=== PATIENT | female | born 1985 | race Caucasian/White ===

== ENCOUNTER 2019-01-20 05:25 | Day surgery (SDC) ==
[2019-01-20] MEDS ORDERED: NS 1,000 ML IV ONE (05:38)
[2019-01-20] MEDS ORDERED: BENTYL IM ONE (05:38)
[2019-01-20] MEDS ORDERED: REGLAN IV ONE (05:38)
[2019-01-20] MEDS ORDERED: BENADRYL IV ONE (05:38)
[2019-01-20] MEDS ORDERED: MORPHINE IV ONE (05:38)
--- NOTE | 2019-01-20 05:44 | PROVIDER DOCUMENTATION ---
HPI-Abdominal Pain/GI Problem - General Chief Complaint: Flank Pain Stated Complaint: ABD PAIN Time Seen by Provider: 01/20/19 05:35 Source: patient, family Allergies/Adverse Reactions: Patient Allergies Allergy/AdvReac Type Severity Reaction Status Date / Time levofloxacin [From Levaquin] Allergy Mild HIVES Verified 08/26/15 15:41 tramadol Allergy Mild HIVES Verified 08/26/15 15:41 acetaminophen Allergy HIVES Verified 08/26/15 15:41 [From Tylenol-Codeine #3] codeine phosphate * Allergy HIVES Verified 08/26/15 15:41 [From Tylenol-Codeine #3] Home Medications: Home Medication List Medication Instructions Recorded Confirmed Last Taken Type Amoxicillin 875 mg PO BID #20 tablet 02/27/18 Unknown Rx Prednisone 20 mg PO DAILY #6 tablet 02/27/18 Unknown Rx - History of Present Illness-ABD Nature of Presenting Problems: C/O acute onset of right sided flank and back pain, difficulty urinating, nauseated, sweating. Has had chronic back pain in the past, states this is much worse. Never had this type of pain before. states "she's been hurting all night with this pain." Abdominal Pain Onset Location: reports: RLQ, flank Pain Radiation: reports: back Quality of Pain: reports: aching, stabbing Severity in ED: reports: severe Onset/Duration: reports: abrupt, last night Timing: reports: still present, constant, changing over time, getting worse Activities at Onset: reports: light activity Exposure to sick contacts?: No Modifying Factors: improves with: nothing. worse with: movement Associated Symptoms: reports: back/neck pain, diaphoresis, genitourinary problems, loss of appetite, nausea. denies: vomiting Last BM: last night Dark Stools Present?: reports: none noticed Rectal Bleeding: reports: none Rectal Pain: reports: none Emesis Description: reports: none Bruising or Bleeding Gums?: No Similar Symptoms Previously?: No Recently seen or treated by another doctor?: No Review of Systems - Adult - REVIEW OF SYSTEMS - ADULT Constitutional: reports: no symptoms reported Eyes: reports: no symptoms reported Ears, Nose, Mouth & Throat: reports: no symptoms reported Cardiovascular: reports: no symptoms reported Respiratory: reports: no symptoms reported Gastrointestinal: reports: no symptoms reported Genitourinary: reports: no symptoms reported Musculoskeletal: reports: no symptoms reported Integumentary: reports: no symptoms reported Neurological: reports: no symptoms reported Psychiatric: reports: no symptoms reported Endocrine: reports: no symptoms reported Hematologic/Lymphatic: reports: no symptoms reported Allergic/Immunologic: reports: no symptoms reported All Other Systems: Reviewed and Negative Past History - Adult - PAST MEDICAL HISTORY-ADULT Review of Records: reports: Old Records Reviewed (Multiple ER visits in past, suspect allergies.), Nursing Assessment Review, Medications Reviewed, Social history reviewed & non-contributory. Major Childhood Illnesses: reports: denies history Cardiovascular: reports: denies history Respiratory: reports: denies history Gastrointestinal: reports: denies history Obstetrical/Gynecological: reports: denies history Genitourinary: reports: denies history Musculoskeletal: reports: chronic pain, neck/back injury Neurological: reports: denies history Endocrine/Immune: reports: denies history Other Conditions: reports: denies history - PRIOR SURGERIES/PROCEDURES Surgical/Procedure History: reports: hysterectomy, - PRIOR HOSPITALIZATIONS Prior Hospitalizations: reports: none - IMMUNIZATION STATUS Childhood Immunizations: See Nurse Assessment Flu Vaccine: See Nurse Assessment - FAMILY HISTORY Family History: reviewed, not pertinent - SOCIAL HISTORY Smoking: cigarettes, greater than 1 pack/day Provider spent 3-5 mins advising pt. on dangers of tobacco.: Discussed manners to quit use, and f/u contacts for add'l counseling. Substance Use: none/never Alcohol Use Frequency: occasionally Living Situation: family Physical Exam-General - PHYSICAL EXAM-ADULT Initial Vital Signs Reviewed: Yes (Tachycardic, otherwise stable vitals) - CONSTITUTIONAL General Appearance: alert, moderate distress (crying in pain, laying on back, legs drawn up to torso), thin - EYES Eyes: PERRL/EOMI, pink conjunctivae - HEAD, EARS, NOSE, MOUTH & THROAT HENMT: normocephalic/atraumatic, normal ENT inspection. negative: moist mucous membranes - NECK Neck: non-tender, full range of motion, supple, normal inspection - RESPIRATORY Respiratory: chest non-tender, lungs clear, normal breath sounds, no pleuratic chest pain, no respiratory distress, no accessory muscle use - CARDIOVASCULAR Cardiovascular: normal peripheral pulses, regular rate, rhythm, no edema, no gallop, no JVD, no murmur, tachycardia - GASTROINTESTINAL (ABDOMEN) Abdominal Exam: normal bowel sounds, soft, no organomegaly, no pulsatile mass, guarding, tenderness (right flank) - LYMPHATIC Lymphatic: no adenopathy - MUSCULOSKELETAL Back Exam: normal inspection, no vertebral tenderness, CVA tenderness (on right) Extremity: normal range of motion, non-tender, normal gait, normal inspection, no pedal edema, normal capillary refill - SKIN Integumentary: normal color, normal turgor, diaphoresis (clammy) - NEUROLOGIC Neurologic: fern picker II-XII nml as tested, grossly normal, no motor/sensory deficits - PSYCHIATRIC Psych/Mental Status: normal mood/affect, normal thought content, normal thought process, oriented x 3, tearful Progress - PLAN OF CARE/RESULTS Progress/Plan/Lab Results: Vital Signs - 8 hr 01/20/19 05:28 Temperature 98 F Pulse Rate 112 H Respiratory Rate 18 O2 Sat by Pulse Oximetry 99 Orders Category Date Time Status ED: Urine Bedside ORDERED Care 01/20/19 05:[address] RENAL STONE SEARCH [CT] Stat Exams 01/20/19 05:37 Ordered CBC WITH ELECTRONIC DIFF [HEME] Stat Lab 01/20/19 05:37 Uncollected COMPREHENSIVE METABOLIC PANEL [CHEM] Stat Lab 01/20/19 05:[address] W/POSS RFLX CULT [URINALYSIS] Stat Lab 01/20/19 05:37 Uncollected 0.9% Sodium Chloride Inj [Ns] 1,000 ml Med 01/20/19 05:38 Active IV 999 mls/hr Dicyclomine [Bentyl] Med 01/20/19 05:38 Discontinued 20 mg IM NOW ONE Diphenhydramine [Benadryl] Med 01/20/19 05:38 Discontinued 25 mg IV NOW ONE Metoclopramide [Reglan] Med 01/20/19 05:38 Discontinued 10 mg IV NOW ONE Morphine Med 01/20/19 05:38 Discontinued 4 mg IV NOW ONE Discussed results with pt who agrees with plan to go to General for emergent treatment with Dr Gomes. Result Diagrams: 01/20/19 05:47 01/20/19 05:47 - REASSESSMENT Reassessment #1 Time Reassessed: 06:31 Status: improving (Given IVF bolus, IV morphine/reglan/benadryl and IM bentyl. Awaiting UA and CT results.) Reassessment Comment: [place] PDMP Website review: No controlled RX in 2 years - CONSULTS/PCP/HOSPITALIST Notification #1 *Consult/PCP/Hospitalist*: Dr Gomes Time Discussed: 10:45 Consult Disposition: Admit, other (asked that pt come to [facility] ER for emergent treatment by EMS.) - CHANGE OF SHIFT REPORT (ED Provider) 1 Report Given and Care Transferred to:: Dr. Baum Time of Transfer: 07:00 Items Pending: Labs, CT/MRI Results, Pain Control Departure - Departure Date of Disposition Decision: 01/20/19 Time of Disposition Decision: 10:48 DIAGNOSIS: Renal colic on right side, Tobacco use disorder, UTI (urinary tract infection), Ovarian torsion Disposition: ADMITTED INPATIENT 09 Certified Medical Emergency: Emergent Condition: Serious Referrals and Follow-Ups: None,PCP [Primary Care Provider] - - Critical Care Note This patient required my direct & personal management of CC.: No Attestation - Physician/ FELIZ Attestation Patient care was provided by Advanced Practice Provider:: No The physician spent face to face time with patient:: Yes Advanced Practice Provider documentation review:: Supervising physician onsite and consulted in the evaluation and care of this patient. The physician did have a face to face encounter with the patient.
[2019-01-20 06:06] LABS: BASO# 0.02 X1000 (0.0-0.2); BASO% 0.2 % (0.0-0.8); EOS# 0.23 X1000 (0.0-0.7); EOS% 2.7 % (0.0-10.0); HEMATOCRIT 42.9 % (37.0-47.0); HEMOGLOBIN 14.8 g/dL (12.0-16.0); IMM GRAN# 0.03 X1000 (0.0-0.04); IMM GRAN% 0.4 % (0.0-0.5); LYMPH# 1.58 X1000 (1.2-3.4); LYMPH% 18.9 % (20.5-51.1); MCH 29.1 PG (27-31); MCHC 34.5 g/dL (33-37); MCV 84.3 FL (81-99); MONO# 0.63 X1000 (0.11-0.59); MONO% 7.5 % (1.7-9.3); NEUT# 5.88 X1000 (1.4-6.5); NEUT% 70.3 % (42.2-75.2); PLT 267 X1000 (130-400); RBC 5.09 XMIL (4.2-5.4); RDW 12.2 % (11.5-14.5); WBC 8.37 X1000 (4.8-10.8)
[2019-01-20 06:17] LABS: AGAP 11; ALBUMIN 4.7 g/dL (3.5-5.0); ALKALINE PHOSPHATASE 84 U/L (32-104); BUN 7 mg/dL (8-22); CALCIUM 9.5 mg/dL (8.8-10.2); CHLORIDE 102 mmol/L (98-107); COSMO 273; CREATININE 0.7 mg/dL (0.5-0.9); ESTIMATED GFR > 60; GLUCOSE 126 mg/dL (70-104); GOT 16 U/L (10-30); GPT 18 U/L (10-36); SODIUM 137 mmol/L (136-145); TCO2 24 mmol/L (25-35)
--- NOTE | 2019-01-20 07:38 | Diag Imaging Result Doc PS360 ---
EXAM: CT RENAL STONE SEARCH HISTORY: flank pain and vomiting TECHNIQUE: CT abdomen and pelvis without contrast COMPARISON: None. FINDINGS: No calcified gallstones or adjacent inflammation. No focal hepatic abnormality identified on this noncontrasted exam. No splenomegaly. No inflammation about the pancreas. Normal adrenal glands. No perinephric inflammation. No renal stones. No hydronephrosis. Normal aorta. No bowel obstruction. The cecum is low in the pelvis. No inflammation about the cecum. There is stool throughout the colon. The urinary bladder is not distended. There is a 3.3 cm right ovarian cyst. The uterus apparently has been removed. Trace pelvic fluid. IMPRESSION: 1.Constipation 2.Right ovarian cyst This exam was performed using automated exposure control, adjustment of mA or kV according to patient size, and/or use of iterative reconstruction technique. Electronically signed by Indio Putnam 01/20/2019 7:36 AM
[2019-01-20 08:44] LABS: BILIRUBIN URINE NEGATIVE (NEGATIVE); BLOOD URINE NEGATIVE (NEGATIVE); CLARITY CLEAR (CLEAR); COLOR YELLOW; GLUCOSE URINE NEGATIVE (NEGATIVE); KETONE URINE TRACE mg/dL (NEGATIVE); LEUKOCYTES URINE 1+ (NEGATIVE); NITRITE URINE NEGATIVE (NEGATIVE); PH URINE 6.5; PROTEIN URINE 1+(30 mg/dL) mg/dL (NEGATIVE); SP GRAVITY URINE 1.025; UROBILINOGEN URINE NORMAL
[2019-01-20 08:49] LABS: URINE BACTERIA 3+ /HFP; URINE CAST NONE SEEN /LPF; URINE CRYSTAL NONE SEEN /HPF; URINE EPITHELIAL CELLS >10 /HPF (<10); URINE RBC <10 /HPF (<10); URINE SOURCE CLEAN CATCH; URINE WBC <10 /HPF (<10); URINE YEAST NONE SEEN /HPF
[2019-01-20 08:54] LABS: UR AMPHETAMINES QUAL PRESUMPTIVE POSITIVE (NONE DETECT); UR BARBITUATES QUAL NONE DETECTED (NONE DETECT)
[2019-01-20 08:55] LABS: UR BENZODIAZEPIN QUAL NONE DETECTED (NONE DETECT); UR CANNABINOIDS QUAL PRESUMPTIVE POSITIVE (NONE DETECT); UR COCAINE QUAL NONE DETECTED (NONE DETECT); UR METHADONE QUAL NONE DETECTED (NONE DETECT); UR METHAMPHETAMINE QUAL PRESUMPTIVE POSITIVE (NONE DETECT); UR OPIATES QUAL PRESUMPTIVE POSITIVE (NONE DETECT); UR OXYCODONE QUAL NONE DETECTED (NONE DETECT); UR PCP QUAL NONE DETECTED (NONE DETECT); UR PROPOXYPHENE QUAL NONE DETECTED (NONE DETECT); UR TCA QUAL NONE DETECTED (NONE DETECT)
[2019-01-20] MEDS ORDERED: DILAUDID IV ONE ×2 (09:12→11:15)
--- NOTE | 2019-01-20 10:43 | Diag Imaging Result Doc PS360 ---
US PELVIC NON-OB (LIMITED) - 01/20/2019 INDICATION: rule out rt ovarian torsion TECHNIQUE: Standard protocol. COMPARISON: None FINDINGS: Limited transabdominal images were followed by additional sedation in the ER and repeat endovaginal images. There is no definitive internal color Doppler or duplex blood flow within the right ovary. This is suspicious for ovarian torsion. There is no free fluid within the cul-de-sac. Left ovary is not visualized. Uterus is not evaluated on this limited study. There is a 4.2 cm right ovarian cyst. IMPRESSION: Findings suspicious for right ovarian torsion. This report was discussed with Dr. Baum on 01/20/2019 at 10:40 AM with read back verification. Electronically signed by Ela Ojeda 01/20/2019 10:41 AM
[2019-01-20] MEDS ORDERED: ROBINUL ONE ×2 (12:56→13:55)
[2019-01-20] MEDS ORDERED: XYLOCAINE-MPF 2% ONE (12:56)
[2019-01-20] MEDS ORDERED: DIPRIVAN 1% ONE (12:56)
[2019-01-20] MEDS ORDERED: KEFZOL 1 GM/D5W 1 GM/50 ML IVPB ONE (13:13)
[2019-01-20] MEDS ORDERED: LR 1,000 ML ONE ×2 (13:14→14:37)
[2019-01-20] MEDS ORDERED: PRECEDEX ONE (13:15)
[2019-01-20] MEDS ORDERED: DECADRON ONE (13:25)
[2019-01-20] MEDS ORDERED: ZOFRAN ONE (13:25)
[2019-01-20] MEDS ORDERED: OFIRMEV 1000 MG/ISOTONIC SOLN 0 MG/0 ML BOTTLE ONE (13:25)
[2019-01-20] MEDS ORDERED: TORADOL ONE (13:25)
[2019-01-20] MEDS ORDERED: NEOSTIGMINE ONE (13:55)
[2019-01-20] MEDS ORDERED: DILAUDID IV PRN (15:43)
[2019-01-20] MEDS ORDERED: ZOFRAN IV PRN (15:44)
--- NOTE | 2019-01-20 15:58 | HISTORY AND PHYSICAL ---
HISTORY OF PRESENT ILLNESS: Patient 33-year-old white female, G2, P2, status post hysterectomy who presents with acute onset of abdominal pain at 3 a.m. this morning. She went to [facility] beginning at about 5 a.m. and after evaluation with ultrasound, she was noted to have no blood flow in her right ovary as well as a 3 cm cyst. There was a small amount of free fluid noted in the pelvis. It was absent uterus and absent left ovary. PAST MEDICAL HISTORY: Unremarkable. PAST SURGICAL HISTORY: Hysterectomy, x2, laparoscopy for endometriosis. PAST OB HISTORY: G2, P2, x2. JANITOR HELPER HISTORY: Menarche at age 13. FAMILY HISTORY: Unremarkable. REVIEW OF SYSTEMS: All systems reviewed and noncontributory. MEDICATIONS: None. ALLERGIES: Levaquin, itching and rash. SOCIAL HISTORY: Tobacco use 1 pack per day. Alcohol use none. PE: Height 4 feet 9 inches, [id number] pounds. Temperature 98.7 degrees, pulse 61, respirations 18, blood pressure 116/67.HEENT: Pupils equal, round, reactive to light, accommodation. Extraocular movements intact. Oropharynx clear. Neck: Supple. No thyromegaly. Lungs: Clear to auscultation. Heart: Regular rate and rhythm. Abdomen: Bowel sounds positive. Soft with rebound noted in the lower abdomen to deep palpation. Unable to appreciate any masses. Extremities: No clubbing, cyanosis, or edema noted. Neuro: Cranial nerves 2-12 grossly intact. Motor 5/5, DTRs 2+ bilaterally. ASSESSMENT/PLAN: Torsed right ovary. Patient have laparoscopy, possible laparotomy for removal of torsed right ovary. Discussed with patient about the risks of surgery including bleeding, infection, bowel or bladder injury. Also discussed with the patient about the fact this is her last remaining ovary and she might need hormone replacement therapy afterwards. cc: MD TAMMI Biswas III
[2019-01-20] MEDS ORDERED: LR 1,000 ML IV SCH (16:00)
[2019-01-20] MEDS: NORCO-7.5 PO PRN ×2 (18:23→23:52)
--- NOTE | 2019-01-20 19:41 | OPERATIVE NOTE ---
PROCEDURE DATE: 01/20/2019 PREOPERATIVE DIAGNOSIS: Acute abdominal pain, right torsed ovary. POSTOPERATIVE DIAGNOSIS: Acute abdominal pain, right torsed ovary. PROCEDURE: Laparoscopy with right salpingo-oophorectomy. SURGEON: Gokul Gomes III, MD ASSIST: ORT. ANESTHESIA: General, Dr. Arias. FINDINGS: A right torsed ovary and normal left ovary. COMPLICATIONS: None. ESTIMATED BLOOD LOSS: 20 mL. SPECIMENS: Right tube and ovary. DRAINS: None. COUNTS: All counts were correct x3. INDICATIONS: The patient is a 33-year-old white female, G2, P2, who had acute onset of abdominal pain this morning and was diagnosed with a right torsed ovary. The patient had been NPO since 9 p.m. last night and we discussed with patient about the risks of surgery including bleeding, infection, bowel or bladder injury. PROCEDURE: The patient was taken to OR, placed in supine position. General anesthesia was employed. Then the patient was placed in dorsal lithotomy position using low Darwin stirrups. She was then prepped and draped in a sterile fashion with placement of a Mccracken catheter. A 5 mm incision was made infraumbilically in a vertical fashion using #11 scalpel. Then, a Veress needle was placed into the abdominal cavity and water drop test showed good water flow. CO2 gas was then used to insufflate the abdomen. Opening pressure was 2 mmHg and 2.0 L of CO2 gas were used to insufflate the abdomen. Veress needle was removed and then a 5 mm trocar was placed into the abdominal cavity under and with the laparoscopic camera showing placement into the abdominal cavity. A 5 mm incision was made suprapubically in a transverse fashion with a #11 blade. A 5 mm trocar was placed. Inspection of the pelvic cavity revealed the right ovary that was enlarged and edematous from torsion and an actual torsion was seen at the infundibulopelvic ligament. The left ovary was also identified and this appeared normal. She was unsure of whether she had a left ovary and one was not seen on ultrasound. Another trocar was placed on the left side and this was 11 mm and this was placed under laparoscopic visualization. The grasper was used to elevate the right ovary and the LigaSure was used to go across the infundibulopelvic ligament. This was clamped and cut after application x2. Then the freed tube and ovary were elevated using a grasper and an endobag was then placed into the abdominal cavity. The specimen was placed into the Endo catch and then this was removed through the port site on the left side under laparoscopic visualization. At this point in time, irrigation was performed and good hemostasis was noted at all sites and then the left side, the 11 mm port site had the fascia closed with 2-0 Vicryl. The skin was reapproximated using 4-0 Vicryl in a subcuticular fashion. The other trocars were removed after allowing the CO2 gas to escape and the 5 mm incision port sites were closed using 4-0 Vicryl in a subcuticular fashion. The patient tolerated the procedure well and was taken to the recovery room in stable condition. All counts were correct x3. cc: Gokul Gomes III, MD
[2019-01-20] MEDS: PERIDEX MT SCH (22:40)
[2019-01-21 06:56] LABS: BASO# 0.01 X1000 (0.0-0.2); BASO% 0.1 % (0.0-0.8); EOS# 0.03 X1000 (0.0-0.7); EOS% 0.3 % (0.0-10.0); HEMATOCRIT 36.9 % (37.0-47.0); HEMOGLOBIN 12.3 g/dL (12.0-16.0); IMM GRAN# 0.04 X1000 (0.0-0.04); IMM GRAN% 0.4 % (0.0-0.5); LYMPH% 20.3 % (20.5-51.1); MCH 28.9 PG (27-31); MCHC 33.3 g/dL (33-37); MCV 86.8 FL (81-99); MONO% 7.7 % (1.7-9.3); MPV 10.4 FL (7.4-10.4); NEUT# 7.36 X1000 (1.4-6.5); NEUT% 71.2 % (42.2-75.2); PLT 222 X1000 (130-400); RBC 4.25 XMIL (4.2-5.4); RDW 12.3 % (11.5-14.5); WBC 10.34 X1000 (4.8-10.8)
[2019-01-21 07:41] VITALS: BP 114/59
[2019-01-21] MEDS: NORCO-7.5 PO PRN (07:48)
[2019-01-21] MEDS: PERIDEX MT SCH ×2 (07:48→08:31)
== END 2019-01-21 09:04 | disposition home or self-care (01) ==
LOC: 4N 05:25 → P.ED 05:25 → OPS 05:26 → P.ED 12:20 → OPS 01-21 09:04
PROVIDERS: ATTEND Obstetrics & Gynecology